=== PATIENT | female | born 1995 | race Caucasian/White ===

== ENCOUNTER 2017-08-22 22:58 | Inpatient (IN) | payer OTHER, MEDICAID ==
[~2017-08-22] VITALS: Ht 157.5 cm; Wt 65.0 kg
[2017-08-22] MEDS ORDERED: D5%-LACTATED RINGERS 1,000 ML IV SCH (23:17)
[2017-08-22] MEDS ORDERED: LACTATED RINGERS 1,000 ML IV SCH (23:17)
[2017-08-22] MEDS ORDERED: OXYTOCIN 30U/ 0.9% NaCL 500ML 500 ML IV ONE (23:17)
[2017-08-22] MEDS ORDERED: NEWBORN KIT ONE (23:20)
[2017-08-22] MEDS ORDERED: LIDOCAINE 1%, 20ML ONE (23:21)
[2017-08-22] MEDS ORDERED: OXYTOCIN 30U/ 0.9% NaCL 500ML 500 ML ONE (23:21)
[2017-08-22] MEDS ORDERED: MISOPROSTOL 200 MCG TABLET ONE (23:21)
[2017-08-22] MEDS ORDERED: CALCIUM CARBONATE 500 MG TAB.CHEW PO PRN (23:30)
[2017-08-22] MEDS ORDERED: SODIUM CITRATE/CITRIC ACID 30 ML UDC PO PRN (23:30)
[2017-08-22] MEDS ORDERED: FENTANYL PF 100 MCG/2ML IV PRN (23:30)
[2017-08-22] MEDS ORDERED: FENTANYL PF 100 MCG/2ML IVPush PRN (23:30)
[2017-08-22] MEDS ORDERED: METOCLOPRAMIDE 5 MG/ML, 2ML IVPush PRN (23:30)
[2017-08-22] MEDS ORDERED: TERBUTALINE 1 MG/ML, 1ML IVPush PRN ×2 (23:30)
[2017-08-22] MEDS ORDERED: TERBUTALINE 1 MG/ML, 1ML SQ PRN (23:30)
[2017-08-22] MEDS ORDERED: ONDANSETRON 2MG/ML, 2ML IVPush PRN (23:30)
[2017-08-22 23:43] LABS: HEMATOCRIT 32.2 % (34.6-47.8); HEMOGLOBIN 11.1 g/dL (11.7-16.4); WHITE BLOOD COUNT 7.3 x10^3/uL (3.4-10)
[2017-08-22 23:47] LABS: DAU SCREEN DISCLAIMER
[2017-08-23] MEDS ORDERED: FENTANYL PF 100 MCG/2ML ONE ×2 (00:16→00:28)
[2017-08-23] MEDS ORDERED: FENTANYL/BUPIV./NS/PF 250 ML EPIDCONT ONE ×2 (00:17→00:28)
[2017-08-23] MEDS ORDERED: BUPIVACAINE 0.25% ONE (00:17)
[2017-08-23] MEDS ORDERED: LIDOCAINE/PF 1.5%-EPI 1:200K, 30ML ONE (00:28)
[2017-08-23] MEDS ORDERED: LACTATED RINGERS 1,000 ML IV SCH (00:48)
[2017-08-23] MEDS ORDERED: FENTANYL/BUPIV./NS/PF 250 ML EPIDCONT SCH (00:48)
[2017-08-23] MEDS ORDERED: ONDANSETRON 2MG/ML, 2ML IVPush PRN (01:00)
[2017-08-23] MEDS ORDERED: EPHEDRINE 50 MG/ML, 1ML IVPush PRN (01:00)
[2017-08-23] MEDS ORDERED: LACTATED RINGERS 1,000 ML IVBOLUS PRN (01:00)
[2017-08-23] MEDS ORDERED: ONDANSETRON 2MG/ML, 2ML ONE (01:21)
[2017-08-23] MEDS ORDERED: OXYTOCIN 30U/ 0.9% NaCL 500ML 500 ML IV SCH ×2 (04:50)
[2017-08-23] MEDS ORDERED: OXYcodone IR 5MG TABLET PO PRN ×2 (05:00→21:30)
[2017-08-23] MEDS ORDERED: CALCIUM CARBONATE 500 MG TAB.CHEW PO PRN ×2 (05:00→21:30)
[2017-08-23] MEDS ORDERED: DOCUSATE 100 MG CAPSULE PO PRN (05:00)
[2017-08-23] MEDS ORDERED: ONDANSETRON 2MG/ML, 2ML IV PRN ×2 (05:00→21:30)
[2017-08-23] MEDS ORDERED: METHYLERGONOVINE 0.2 MG/ML IM PRN ×2 (05:00→21:30)
[2017-08-23] MEDS ORDERED: MAGNESIUM HYDROXIDE 8%, 30ML UDC PO PRN ×2 (05:00→21:30)
[2017-08-23] MEDS ORDERED: DIPH,PERTUSS(ACELL),TET VAC/PF NC IM-VACC PRN (05:00)
[2017-08-23] MEDS ORDERED: OXYTOCIN 10 UNITS/ML, 1ML IM PRN (05:00)
[2017-08-23] MEDS ORDERED: ACETAMINOPHEN 325 MG TABLET PO PRN ×5 (05:00→22:00)
[2017-08-23] MEDS ORDERED: RHOGAM FROM BLOOD BANK 1 NOTE EA IM/IV ONE (05:00)
[2017-08-23] MEDS ORDERED: OXYTOCIN 30U/ 0.9% NaCL 500ML 500 ML ONE (05:18)
[2017-08-23] MEDS ORDERED: IBUPROFEN 600 MG TABLET ONE (07:14)
[2017-08-23] MEDS: IBUPROFEN 600 MG TABLET PO PRN ×2 (07:17→16:11)
[2017-08-23] MEDS ORDERED: OXYcodone/APAP 5/325MG TABLET ONE (07:45)
[2017-08-23] MEDS: OXYcodone/APAP 5/325MG TABLET PO PRN ×3 (07:48→23:52)
[2017-08-23 08:15] VITALS: BP 103/65
[2017-08-23] MEDS ORDERED: PRENATAL VIT/IRON/FA 1 EACH TABLET PO SCH (09:00)
[2017-08-23 12:15] VITALS: BP 120/70
[2017-08-23 12:25] LABS: HEMATOCRIT 31.9 % (34.6-47.8); WHITE BLOOD COUNT 10.2 x10^3/uL (3.4-10)
[2017-08-23 16:13] VITALS: BP 107/70
[2017-08-23 19:15] VITALS: BP 101/50
[2017-08-23] MEDS ORDERED: IBUPROFEN 600 MG TABLET PO PRN (20:00)
[2017-08-23] MEDS: DOCUSATE 100 MG CAPSULE PO PRN (21:00)
[2017-08-23] MEDS ORDERED: MEASLES,MUMPS&RUBELLA VACC/PF 0.5 ML SQ-VACC ONE (23:00)
[2017-08-24] VITALS: BP 95/52
[2017-08-24 03:51] VITALS: BP 92/52
[2017-08-24 06:50] VITALS: BP 105/69
[2017-08-24] MEDS: DOCUSATE 100 MG CAPSULE PO PRN (08:04)
[2017-08-24] MEDS: OXYcodone/APAP 5/325MG TABLET PO PRN ×2 (08:04→15:40)
[2017-08-24] MEDS ORDERED: PRENATAL VIT/IRON/FA 1 EACH TABLET PO SCH (09:00)
[2017-08-24] MEDS ORDERED: OXYC-302 PO (17:43)
[2017-08-24] MEDS ORDERED: IBUP-1222 PO (17:43)
[2017-08-24] MEDS ORDERED: PREN1TAB60 PO (17:44)
[2017-08-24] MEDS ORDERED: DOCU-131 PO (17:45)
== END 2017-08-24 18:15 | disposition home or self-care (01) | DRG 775 ==
LOC: LDOP 22:58 → LDIP 23:24 → 2NW 08-23 07:37
PROVIDERS: ADMIT Obstetrics & Gynecology; ATTEND Obstetrics & Gynecology
PROC: 10E0XZZ Delivery of Products of Conception, External Approach (ICD-10-PCS; principal; 2017-08-23)
PROC: 3E0R3BZ Introduction of Anesthetic Agent into Spinal Canal, Percutaneous Approach (ICD-10-PCS; 2017-08-23)
PROC: 00HU33Z Insertion of Infusion Device into Spinal Canal, Percutaneous Approach (ICD-10-PCS; 2017-08-23)
DX: O80 Encounter for full-term uncomplicated delivery (principal); Z37.0 Single live birth; Z3A.39 39 weeks gestation of pregnancy
CPT/HCPCS: 36415; 80307; 85025; 86850; 86900; J2405; J3010; J3490; G0479; J2590; J7120